=== PATIENT | male | born 1980 | race Caucasian/White ===

== ENCOUNTER → 2020-12-10 | Emergency (ER) | payer MEDICAID ==
[~2020-12-10] VITALS: Ht 177.8 cm; Wt 75.6 kg
[~2020-12-10] MED LIST: HYDR-3965 PO; HYDROcodone/acetaminophen 10/325mg tab PO ONE; LIDOcaine 1% W/epiNEPHrine 1:200,000 10ml vial IJ ONE; TETanus/Pertussis (Acell)/Diphther VAC/PF (Tdap-Adult) 0.5ml syringe IMVAC ONE; morphine 4 MG/ML inj SYRINge IM ONE
[2020-12-10 12:33] VITALS: BP 136/87
--- NOTE | 2020-12-10 16:34 | NUR ---
PA STUDENT AT BEDSIDE DOING SUTURING
== END | disposition home or self-care (01) ==
LOC: ER 12:09
DX: S01.412A Laceration without foreign body of left cheek and temporomandibular area, initial encounter (principal); M54.2 Cervicalgia; M25.552 Pain in left hip; M25.522 Pain in left elbow; Z79.899 Other long term (current) drug therapy; W17.89XA Other fall from one level to another, initial encounter; Y93.89 Activity, other specified; Y92.89 Other specified places as the place of occurrence of the external cause; Y99.8 Other external cause status
CPT/HCPCS: 12013; 70450; 70486; 72125; 72170; 73080; 90471; 90715; 96372; 99285; J2270

== ENCOUNTER 2023-05-14 | Emergency (ER) | payer MEDICAID ==
[~2023-05-14] VITALS: Ht 180.3 cm; Wt 65.0 kg
[2023-05-14 00:07] VITALS: BP 120/75; PULSE 82; RESP 18; TEMP 98.1; O2SAT 95
[2023-05-14] MEDS ORDERED: ibuprofen tablet 400 MG TABLET PO ONE (03:20)
[2023-05-14] MEDS ORDERED: acetaminophen 325mg tablet PO ONE (03:20)
[2023-05-14] MEDS ORDERED: proparacaine 0.5% ophthalmic drops 15ml EACHEYE ONE (03:20)
[2023-05-14] MEDS ORDERED: ibuprofen 200mg tablet PO ONE (03:25)
[2023-05-14] MEDS ORDERED: ERYT1OIN6 RIGHTEYE (04:06)
[2023-05-14] MEDS ORDERED: erythromycin ophthalmic ointment 1gm tube RIGHTEYE ONE (04:10)
== END 2023-05-14 04:42 | disposition home or self-care (01) ==
LOC: ER 00:01
DX: S05.01XA Injury of conjunctiva and corneal abrasion without foreign body, right eye, initial encounter (principal); Z91.030 Bee allergy status; X58.XXXA Exposure to other specified factors, initial encounter; Y93.89 Activity, other specified; Y92.89 Other specified places as the place of occurrence of the external cause; Y99.8 Other external cause status
CPT/HCPCS: 99284

== ENCOUNTER 2025-01-31 13:45 | Emergency (ER) | payer SELFPAY ==
[~2025-01-31] VITALS: Ht 180.3 cm; Wt 59.0 kg
[2025-01-31 13:50] VITALS: BP 135/79; PULSE 69; RESP 15; TEMP 97.9; O2SAT 98
--- NOTE | 2025-01-31 13:57 | Physician Documentation ---
History of Present Illness ~ Chief Complaint: Abscess Stated Complaint: ABCESS ON LT UNDER ARM PIT AREA Time Seen by MD: 14:21 Primary Medical Doctor: NONE Source: patient, RN/MD HPI Patient presents with an abscess in his left axillary region which has developed last week. Patient denies any fevers or chills or nausea, vomiting, diarrhea, chest pain, shortness of breath, abdominal pain. Patient states he has had some purulent drainage from his left axilla yesterday. He has no other concern or complaint at this time. Tetanus Within 5 Years: Yes Medication Reconciliation Allergies: Coded Allergies: bee venom protein (honey bee) (Verified Allergy, Unknown, 05/05/24) Review of Systems Constitutional: Denies: chills, fever, weakness Eyes: Denies: pain, blurred vision ENT: Denies: ear pain, nose pain, throat pain, mouth pain Respiratory: Denies: cough, shortness of breath Cardiovascular: Denies: chest pain, palpitations Gastrointestinal: Denies: abdominal pain, nausea, vomiting Genitourinary: Denies: burning, dysuria Male Genitalia: Denies: penile discharge, testicular pain Neurological: Denies: headache, dizziness Musculoskeletal: Denies: pain, swelling Integumentary: Denies: rash, lesions Allergic/Immunologic: Denies: hives, itching Hematologic/Lymphatic: Denies: no symptoms reported Psychiatric: Denies: depression, anxiety Physical Exam Vital Signs: Temperature: 97.9, Source: Temporal, Heart Rate: 69, Respiratory Rate: 15, BP: 135/79, Pulse Oximetry: 98, Weight: 58.950 Physical Exam General: Awake and Alert, no acute distress. HEENT: Conjunctiva pink, Sclera clear, Mucus Membranes moist. Neck: Supple without masses and tenderness. Resp: Unlabored. Lungs clear to auscultation bilaterally. Heart: Regular Rate and rhythm, normal S1 and S2 without murmur, rub or gallop. Extremities: No cyanosis,clubbing or edema. Skin: Patient on exam has erythema and induration surrounding the lesion and pustule without any appreciable fluctuant mass measuring approximately 3 cm in diameter. This is located in patient's left axilla. The area is tender to palpation. Progress Results/Orders Results/Orders Completed Orders - CATHERINE SHARMA Sulfamethox/Trimetho. Ds Tab (Septra Ds (01/31/25 16:25) Vital Signs 01/31/25 13:50 Temp 97.9 Pulse 69 Resp 15 B/P (MAP) 135/79 Pulse Ox 98 Medical Decision Making Findings Patient presents with an abscess in his left axillary region which has developed last week. Patient denies any fevers or chills or nausea, vomiting, diarrhea, chest pain, shortness of breath, abdominal pain. Patient states he has had some purulent drainage from his left axilla yesterday. He has no other concern or complaint at this time. Shared decision-making utilized today. I I do not feel incision and drainage as appropriate at this time. Patient will be started on Bactrim DS one dose in the ED tonight. Prescription for Bactrim DS one tab twice a day for 10 days sent to patient's pharmacy. Patient will follow up with primary care in 2-5 days if no better as needed sooner. Return to ED with any worsening, concerning or changing symptoms. Departure Disposition: HOME / SELF CARE / HOMELESS Impression: Primary Impression: Abscess Condition: Stable Discharge Instructions: Skin Abscess, [id number] Additional Instructions: Shared decision-making utilized today. I I do not feel incision and drainage as appropriate at this time. Patient will be started on Bactrim DS one dose in the ED tonight. Prescription for Bactrim DS one tab twice a day for 10 days sent to patient's pharmacy. Patient will follow up with primary care in 2-5 days if no better as needed sooner. Return to ED with any worsening, concerning or changing symptoms. Referrals: NO PRIMARY CARE PROVIDER (PCP) Signature Scribe Signature: No scribe Attestation: No scribe JESSICA DOSS RECRUITMENT DIRECTOR Jan 31, 2025 13:57 CATHERINE SHARMA Jan 31, 2025 16:32
[2025-01-31] MEDS: sulfamethoxazole/trimethoprim DS (800/160mg) tablet PO ONE (16:25)
== END 2025-01-31 16:43 | disposition home or self-care (01) ==
LOC: ER 13:46
DX: L02.412 Cutaneous abscess of left axilla (principal); Z91.030 Bee allergy status
CPT/HCPCS: 99283; A6449

== ENCOUNTER 2025-05-21 15:55 | Emergency (ER) | payer MEDICAID ==
[~2025-05-21] VITALS: Ht 180.3 cm; Wt 75.0 kg
[2025-05-21 15:57] VITALS: BP 138/86; PULSE 98; RESP 16; TEMP 98.2; O2SAT 97
--- NOTE | 2025-05-21 16:09 | Physician Documentation ---
HPI ~ General Chief Complaint: Tooth Problem Stated Complaint: TOOTH PAIN Time Seen by MD: 16:21 Primary Medical Doctor: NONE History of Present Illness HPI Comment MSE: The patient is a 44-year-old gentleman who presented to emergency department for evaluation of dental pain with possible abscess. Reports that he has had 4 previous abscesses 2 different teeth. Patient reports that he is currently on the waiting list to get in to see the dentist. Patient denies fever chills nausea vomiting diarrhea at this time. For significant past medical history reported no other symptoms reported at this time. Medication Reconciliation Allergies: Coded Allergies: bee venom protein (honey bee) (Verified Allergy, Unknown, 05/05/24) Scheduled Amox Tr/Potassium Clavulanate (Augmentin 875-125 Tablet), 1 TAB PO Q12H Review of Systems ROS As stated above in the HPI, otherwise all systems are reviewed and negative. Physical Exam Vital Signs: Temperature: 98.2, Source: Oral, Heart Rate: 98, Respiratory Rate: 16, BP: 138/86, Pulse Oximetry: 97, Weight: 75.000 Oxygen Flow Rate: 0 Physical Exam VITALS: Reviewed and as above. GENERAL: Alert, no apparent distress. HEENT: Normocephalic, atraumatic, PERRL, EOMI, dry mucosa, no erythema, noted to the upper right gumline, tooth with obvious decay noted. RESPIRATORY: Lungs clear, normal breath sounds, no respiratory distress. CHEST: No accessory muscle use, no retractions CV: Regular rate, rhythm, no edema, no murmur, No: JVD GI: Soft, non-tender, bowels sounds present, no rebound, guarding, or rigidity BACK: No CVA tenderness, or swelling MUSCULOSKELETAL No deformities, no edema SKIN: Warm and dry, no rash NEURO: Oriented x4, No motor or sensory deficit PSYCH: Normal mood and affect, no agitation Progress Results/Orders Results/Orders Completed Orders - JOSH GUTHRIE COMBINE OPERATOR Amox Tr/Potassium Clavulanate (Augmentin (05/21/25 16:15) Vital Signs 05/21/25 15:57 Temp 98.2 Pulse 98 Resp 16 B/P (MAP) 138/86 Pulse Ox 97 O2 Flow Rate 0 Medical Decision Making Findings Patient presents for dental pain due to suspected dental samira. Patient not immunosuppressed, afebrile and well appearing with patent airway, have low suspicfion for deep space infection or any concern for airway compromise. Based on history, physical, and work up. No evidence of tooth fracture, avulsion, or bleeding socket. No evidence of RPA, CROP OR GRAIN FARMER, Ludwigs angina, periapical abscess. Given here prior to discharge and prescribed. Patient discharged home and will follow up with dentist. Discussed return precautions for odontogenic infections and other dental pain emergencies. He will follow up with his primary care provider. Patient will return to the emergency department with any worsening of his current symptoms or any additional concerning symptoms that we discussed here today fever chills nausea vomiting increased swelling difficulty swallowing or any other concerning symptoms. Differential Dx:Considerations: Include: Alveolar fracture, Alveolar osteitis, ANUG, Facial Cellulitis, Periapical abscess, Peridontal abscess, Post-extraction bleeding, Pulpitis, Tooth avulsion, Tooth eruption, Tooth Fracture, Trigeminal neuralgia, Tooth subluxation, Other Departure Disposition: 01 HOME / SELF CARE / HOMELESS Impression: Primary Impression: Dental abscess Additional Impression: Pain, dental Condition: Stable Discharge Instructions: Dental Pain Additional Instructions: Patient presents for dental pain due to suspected dental samira. Patient not immunosuppressed, afebrile and well appearing with patent airway, have low suspicfion for deep space infection or any concern for airway compromise. Based on history, physical, and work up. No evidence of tooth fracture, avulsion, or bleeding socket. No evidence of RPA, CROP OR GRAIN FARMER, Ludwigs angina, periapical abscess. Given here prior to discharge and prescribed. Patient discharged home and will follow up with dentist. Discussed return precautions for odontogenic infections and other dental pain emergencies. He will follow up with his primary care provider. Patient will return to the emergency department with any worsening of his current symptoms or any additional concerning symptoms that we discussed here today fever chills nausea vomiting increased swelling difficulty swallowing or any other concerning symptoms. Referrals: NO PRIMARY CARE PROVIDER (PCP) Prescriptions Amox Tr/Potassium Clavulanate (Augmentin 875-125 Tablet) 1 Each Tablet 1 TAB PO Q12H for 10 Days, #20 TAB Prov: JOSH GUTHRIE 05/21/25 Education Educated: Patient Educated regarding: diagnosis, treatment, need for follow up Signature Scribe Signature: A Attestation: Scribed for Emergency,Department by NITZA Ramesh . 05/21/25 16:24 JOSH GUTHRIE May 21, 2025 16:09
[2025-05-21] MEDS ORDERED: AMOX-117 PO (16:24)
[2025-05-21] MEDS: amox tr/potassium clavulanate 875/125mg TAB PO ONE (16:45)
== END 2025-05-21 16:53 | disposition home or self-care (01) ==
LOC: ER 15:55
DX: K04.7 Periapical abscess without sinus (principal); Z91.030 Bee allergy status
CPT/HCPCS: 99283